=== PATIENT | male | born 1955 | race Caucasian/White ===

== ENCOUNTER → 2025-03-24 12:47 | Outpatient (REF) | payer BC, SELFPAY | LOC: MRI 12:47 | PROVIDERS: ATTENDING PHYSICIAN Specialist | DX: M25.562 Pain in left knee (principal) | CPT/HCPCS: 71046; 73721 ==

== ENCOUNTER 2025-04-06 06:18 | Day surgery (SDC) | payer BC, SELFPAY ==
[2025-03-30 09:14] LABS: Hematocrit 43.8 % (39.0-52.0); Hemoglobin 14.9 g/dL (13.0-18.0); Mean Corp Hgb Conc. 34.0 g/dL (33.0-37.0); Mean Corpuscular Volume 96.5 fL (80.0-94.0); Platelet Count 150 10^3/uL (130-400); Red Cell Dist. Width 13.2 % (11.5-14.5)
[2025-03-30 09:37] LABS: Blood Urea Nitrogen 28 mg/dl (9-20); Calcium 10.0 mg/dl (8.4-10.2); Carbon Dioxide 20 mmol/L (22-30); Chloride 106 mmol/L (98-107); Glucose 99 mg/dl (70-99); Potassium 4.2 mmol/L (3.5-5.1); Sodium 135 mmol/L (135-145); eGFR 42.83
--- NOTE | 2025-03-30 09:59 | PTCARENOTE ---
Abnormal eGFR 42.83 collected 03/30/[address] Ruby [address] Dr Moreira's office.
[2025-03-30 14:13] VITALS: BMI 27.9
[2025-04-06 09:29] VITALS: BMI 27.9
[2025-04-06 09:34] VITALS: BP 129/71
[2025-04-06] MEDS: NORMOSOL-R/PLASMALYTE-A 1000 IV (09:44)
[2025-04-06] MEDS: CELEBREX 200 MG PO (09:44)
[2025-04-06] MEDS: TYLENOL 1000 MG PO (09:45)
[2025-04-06 11:45] VITALS: BP 125/79; BP 129/71
[2025-04-06 12:00] VITALS: BP 137/74
[2025-04-06 12:06] VITALS: BP 129/89
[2025-04-06 12:25] VITALS: BP 130/72
[2025-04-06 12:35] VITALS: BP 141/71
== END 2025-04-06 12:36 | disposition home or self-care (01) ==
LOC: SDS 06:18
PROVIDERS: ATTENDING PHYSICIAN Specialist
DX: S83.242A Other tear of medial meniscus, current injury, left knee, initial encounter (principal); M94.262 Chondromalacia, left knee; X58.XXXA Exposure to other specified factors, initial encounter
CPT/HCPCS: 29880; 36415; 80048; 85027; 93005